=== PATIENT | male | born 1975 | race Hispanic/Latino ===

== ENCOUNTER → 2017-09-08 | Outpatient (CLI) | payer OTHER | LOC: M RAD 06:03 | DX: N28.1 Cyst of kidney, acquired (principal) | CPT/HCPCS: 76775 ==

== ENCOUNTER → 2018-01-15 | Outpatient (CLI) | payer OTHER | LOC: M RAD 13:50 | DX: N20.0 Calculus of kidney (principal) | CPT/HCPCS: 74176 ==